=== PATIENT | male | born 1975 | race Caucasian/White ===

== ENCOUNTER 2016-12-21 12:21 | Emergency (ER) | payer OTHER ==
[~2016-12-21] VITALS: Ht 190.5 cm; Wt 144.0 kg
[2016-12-21 12:26] VITALS: Ht 190.5 cm; Wt 144.0 kg
[2016-12-21] MEDS ORDERED: KETOROLAC 60 MG INJ IM STA (14:15)
[2016-12-21 14:42] LABS: ADD UMIC NO; URINE BILIRUBIN (Dip) NEGATIVE (NEGATIVE); URINE BLOOD (Dip) NEGATIVE (NEGATIVE); URINE COLOR LT. YELLOW (YELLOW); URINE GLUCOSE (Dip) NEGATIVE (NEGATIVE); URINE KETONES (Dip) NEGATIVE (NEGATIVE); URINE LEUKOCYTE ESTERASE (Dip) NEGATIVE (NEGATIVE); URINE NITRITE (Dip) NEGATIVE (NEGATIVE); URINE TOTAL PROTEIN (Dip) NEGATIVE (NEGATIVE); URINE UROBILINOGEN (Dip) 0.2 E.U./dL (0.1-1.0)
--- NOTE | 2016-12-21 15:05 | RADRPT ---
PROCEDURE: US Scrotum. CLINICAL INDICATION: Pain TECHNIQUE: Multiple sonographic images of the scrotal region were obtained utilizing a linear arra y transducer with grayscale and color-flow and a Doppler imaging. The images were reviewed on a high -resolution PACS workstation. COMPARISON: No prior studies are available for comparison. FINDINGS: The right testicle is well visualized and has a normal echotexture. No focal areas of abnormal echog enicity are visualized. The right testicle measures measures 3.6 x 2.2 x 2.5 cm. There is normal col or-flow. The right epididymis is enlarged and heterogeneous measuring 2.1 x 1.3 cm. There is increa sed color-flow. There is a mild right hydrocele. The left testicle is well visualized and has a normal echotexture. No focal areas abnormal echogenic ity are visualized. The left testicle measures measures 3.2 x 1.9 x 2.3 cm. There is normal color-fl ow. The left epididymis is visualized and is unremarkable in appearance. There is normal color-flow. The scrotal wall is unremarkable. RPTAT: AA IMPRESSION: Right epididymitis with a mild right hydrocele. .Jasiel Sharma MD, MD Date Time Electronically viewed and signed by .Jasiel Sharma MD, on 12/21/2016 15:04 .S/
[2016-12-21] MEDS ORDERED: IBUP-1542 PO (15:13)
[2016-12-21] MEDS ORDERED: CIPR500T4 PO (15:13)
[2016-12-21] MEDS ORDERED: HYDR-906 PO (15:13)
--- NOTE | 2016-12-21 15:17 | ERD ---
ER Documentation Chief Complaint Date/Time DATE: 12/21/16 TIME: 15:16 Chief Complaint RIGHT TESTICULAR PAIN X 1 WEEK HPI This 5-year-old male complains of pain in his right testicle for last week. Denies any history of trauma, fevers, dysuria or penile discharge. He denies any concern or known exposures to STDs. ROS All systems reviewed and are negative except as per history of present illness. Medications Home Meds Active Scripts Ibuprofen* (Ibuprofen*) 600 Mg Tablet, 600 MG PO Q6, #20 TAB Prov:NATTY RUCKER MD 12/21/16 Hydrocodone/Acetaminophen ([place] 5-325 Tablet) 1 Each Tablet, 1 EACH PO QID, # 14 TAB Prov:NATTY RUCKER MD 12/21/16 Ciprofloxacin Hcl* (Ciprofloxacin Hcl*) 500 Mg Tablet, 500 MG PO BID for 10 Days , #20 TAB Prov:NATTY RUCKER MD 12/21/16 Allergies Allergies: Coded Allergies: Sulfa (Sulfonamide Antibiotics) (Verified Allergy, Mild, RASH, 12/21/16) PMhx/Soc Medical and Surgical Hx: pt denies Medical Hx, pt denies Surgical Hx Hx Alcohol Use: No Hx Substance Use: No Hx Tobacco Use: No Smoking Status: Never smoker Physical Exam Vitals Vital Signs Date Time Temp Pulse Resp B/P Pulse Ox O2 Delivery O2 Flow Rate FiO2 12/21/16 12:26 97.0 86 18 142/73 98 Physical Exam Const: [] Alert, not ill-appearing per Head: Atraumatic Eyes: Normal Conjunctiva ENT: Normal External Ears, Nose and Mouth. Neck: Full range of motion..~ No meningismus. Resp: Clear to auscultation bilaterally Cardio: Regular rate and rhythm, no murmurs Abd: Soft, non tender, non distended. Normal bowel sounds. General exam shows some tenderness superior aspect of the right testicle without appreciable intratesticular masses. Patient has positive cremasteric reflex no appreciable hernias no penile discharge or external lesions Skin: No petechiae or rashes Back: No midline or flank tenderness Ext: No cyanosis, or edema Neur: Awake and alert Psych: Normal Mood and Affect Results 24 hrs Laboratory Tests Test 12/21/16 14:19 Urine Color LT. YELLOW Urine Clarity CLEAR Urine pH 5.5 Urine Specific [place] 1.010 Urine Ketones NEGATIVE Urine Nitrite NEGATIVE Urine Bilirubin NEGATIVE Urine Urobilinogen 0.2 E.U./dL Urine Leukocyte Esterase NEGATIVE Urine Hemoglobin NEGATIVE Urine Glucose NEGATIVE% Urine Total Protein NEGATIVE Current Medications Medications (Trade) Dose Ordered Sig/Ruth Route PRN Reason Start Time Stop Time Status Last Admin Dose Admin Ketorolac Tromethamine (Toradol) 60 mg ONCE STAT IM 12/21/16 14:15 12/21/16 14:18 DC 12/21/16 15:03 Procedures/MDM Scrotal ultrasound confirms right-sided epididymitis with a small hydrocele without evidence of torsion. Urine is negative for sent for gonorrhea chlamydia. Patient was given Toradol 60 mg IM. Patient will treated with Cipro , [place] and ibuprofen instructions were primary doctor and urology follow-up. Patient was advised to return sooner for worsening pain, swelling, new worsening symptoms. The patient was stable with no new complaints during the ER course. Clinically, there is no current evidence to suggest meningitis, sepsis, acute abdomen, pneumonia, acute coronary syndrome, pulmonary embolism, or any other emergent condition appearing to require further evaluation or hospitalization. The patient should certainly return for any new or worsening symptoms per the aftercare instructions. They should otherwise follow-up with her primary care doctor for reevaluation this week. Departure Diagnosis: Primary Impression: Epididymitis Condition: Stable Patient Instructions: Epididymitis Referrals: JD IRENE MD,FADY Henry MD Additional Instructions: Ultrasound confirms epididymitis. Recheck with primary doctor urology for persistent symptoms. Return sooner for worsening pain, fevers, swelling. NATTY RUCKER MD Dec 21, 2016 15:17
== END 2016-12-21 15:29 | disposition home or self-care (01) ==
LOC: FTE 12:21
DX: N45.1 Epididymitis (principal)
CPT/HCPCS: 76870; 81003; 87591; 96372; J1885; Z7502